=== PATIENT | female | born 1990 | race Caucasian/White ===

== ENCOUNTER 2016-10-13 23:59 | Emergency (ER) | payer OTHER ==
--- NOTE | 2016-10-14 02:07 | ED NURSING NOTES ---
Clinical Report - Nurses [facility] [address] [place] [address] 10/14/2016 0:00 Patient: JOURDAN NICHOLS TRIAGE Triage time 00:29. Acuity: LEVEL 3. Chief Complaint: ABDOMINAL PAIN. --00:40 Camron Pritchett R.N. 00:29 10/14/16. BP: 103/57. HR: 64. RR: 16. O2 saturation: 99%. Temp: 98 F. Pain level now: 11/27. --00:40 Camron Pritchett R.N. Weight: 99.7 kg stated. Height/Length: 61 inches Per Patient. BMI: 41.6. --00:29 Camron Pritchett R.N. Medications None. --00:34 Camron Pritchett R.N. Medication/allergy information source: the patient. --00:40 Camron Pritchett R.N. Allergies No Known Drug Allergy. --00:34 Camron Pritchett R.N. History Arrived by private vehicle. Historian: patient. Accompanied by spouse. ( Miscarriaged last August 22 and have been waiting for OB-PHOTONICS ENGINEER consult since then but unable to get an appointment. have been having lower abdominal pain for over 7 weeks and have followed up with her PCP last month. No vaginal bleeding, occasional nausea and diarrhea with no fever.). Onset. (7 weeks ago). She has had mild nausea. It has been similar to previous symptoms and abdominal pain. The pain is described as located in the lower abdomen and associated with nausea and diarrhea. She has had diarrhea (once per day). Last oral intake by patient was (4 hours ago). 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 PAST MEDICAL HX: Last normal menstrual period- Jun 14. SURGERY HX: Appendectomy. . SOCIAL HX: Light tobacco smoker (cigarette)- less than 1/2 a pack per day. No infectious disease exposure. --00:40 Camron Pritchett R.N. Interventions ID band on patient. To room. --00:40 Camron Pritchett R.N. PHYSICAL ASSESSMENT Ambulatory to room. GENERAL / NEURO / PSYCH: Alert. Oriented X 4. Appears in no acute distress. HEENT: Mucous membranes are pink. RESPIRATORY: Respirations not labored. Breath sounds within normal limits. CVS: Capillary refill less than 2 seconds. GI / : The patient has had nausea and diarrhea. Abdominal distention. Abdomen soft. Abdominal tenderness in the lower abdomen. Bowel sounds within normal limits. A scant amount of thin, clear and white vaginal discharge present. SKIN: Skin is warm and dry. --00:41 Camron Pritchett R.N. NURSING PROGRESS NOTES Head of bed elevated. Reassurance given. Patient identifiers checked. Call light placed in reach. Side rails up x 1. Bed placed in lowest position. Brakes of bed on. Patient ready for evaluation- ED physician notified. --00:42 Camron Pritchett R.N. Patient ID band checked for patient name and birthdate: patient confirmed. Instructions provided to collect clean catch urine and patient verbalized understanding. Clean catch urine collected with return of kasey-colored cloudy urine; sample sent to lab for urinalysis and HCG. Specimen labeled in the presence of the patient. --00:43 Camron Pritchett R.N. Care transferred and report received (Camron Alston RN). --01:11 Yamilet Birmingham R.N. 01:14 10/14/2016 Site #1 started via IV in the right antecubital space with an 20g angiocath, with aseptic technique and good blood return; one attempt. Blood drawn: rainbow set. Labeled in the presence of the patient and sent to the lab. Saline lock flushed with 10 mL saline (Started by Alireza BLOUNT). --01:14 Yamilet Birmingham R.N. ( US in with patient). --01:48 Yamilet Birmingham R.N. <<STRICKEN ENTRY-- 02:17 10/14/2016 Keflex (Cephalexin) PO Capsules 500 mg given. Allergies verified and confirmed 5 rights. --02:17 Yamilet Birmingham R.N. --END STRIKE>> Other. Patient refused, --02:17 Yamilet Birmingham R.N. 02:18 10/14/2016 Site #1 removed. Pressure dressing applied. --02:18 Yamilet Birmingham R.N. 02:14 10/14/16. BP: 108/63 (large adult cuff) taken on the left arm. HR: 78. RR: 18 (regular). O2 saturation: 100% on room air. Pain level now: 12/28. --02:18 Yamilet Birmingham R.N. 02:17 10/14/2016 Keflex (Cephalexin) PO Capsules 500 mg given. Allergies verified and confirmed 5 rights. --02:20 Yamilet Birmingham R.N. DISPOSITION / DISCHARGE 02:50 10/14/16. Departure time: :Oct 14 2016. Condition at departure: unchanged. No learning barriers present. Discharge instructions provided and reviewed with the patient. Reviewed medication(s) side effects, precautions, dosing and course information. Prescription(s) given to the patient. Patient verbalized understanding. Written instructions provided in Indonesian. The patient was discharged by the physician. She was discharged home and accompanied by air cargo ground operations supervisor. She left the Emergency Department ambulatory and via private vehicle. [employer] Architect driving. --02:50 Yamilet Birmingham R.N. 02:48 10/14/16. BP: 108/68 (large adult cuff) taken on the left arm. HR: 78. RR: 16. O2 saturation: 100% on room air. Temp: 97.8 F (oral). Pain level now: 11/27. --02:50 Yamilet Birmingham R.N. Departure time: :Oct 14 2016. --03:26 Yamilet Birmingham R.N. Locked/Released at 10/14/2016 3:27 by Yamilet Birmingham R.N.
--- NOTE | 2016-10-14 02:07 | ED ORDER SUMMARY ---
..... Patient: JOURDAN NICHOLS OrderSheet [facility] VisitID: [id number] [place] [address] 26y, F Registration Date/Time: 10/14/2016 ORDER SHEET Weight: 99.7 kg (stated) Allergies: No Known Drug Allergy GENERAL ORDERS: UA-Culture if indicated Urgent (00:35 10/14/2016 Tenisha Arias) (Ack 0:37 Bertha ER Magazine Designer) (0:43 CHernandez R.N.) Urine Urgent (00:35 10/14/2016 Tenisha Arias) (Ack 0:37 Bertha ER Magazine Designer) (0:43 CHernandez R.N.) US Pelvic Complete w Transvag Urgent (01:00 10/14/2016 Tenisha Arias) (Ack 1:01 Bertha ER Magazine Designer) (Cancelled: Duplicate Order2:01 Tenisha Arias) CBC w Diff Urgent (01:01 10/14/2016 Tenisha Arias) (Ack 1:01 Bertha ER Magazine Designer) (1:14 JSanders R.N.) BMP Urgent (01:01 10/14/2016 Tenisha Arias) (Ack 1:01 Bertha ER Magazine Designer) (1:14 JSanders R.N.) UA-Culture if indicated Urgent (01:01 10/14/2016 Tenisha Arias) (Ack 1:01 Bertha ER Magazine Designer) (Cancelled: Duplicate Order1:04 Mikeerty ER Magazine Designer) Urine Urgent (01:01 10/14/2016 Tenisha Arias) (Ack 1:01 Mikeerty ER Magazine Designer) (Cancelled: Duplicate Order1:04 CHagerty ER Magazine Designer) Serum Quantitative Urgent (01:51 10/14/2016 Tenisha Arias) (Ack 2:22 Bertha ER Magazine Designer) (2:44 JSanders R.N.) US OB 2nd Trimester (several months ago) Urgent (02:01 10/14/2016 Tenisha Arias) (2:08 GUnger) MEDICATION ORDERS: Keflex PO 500 mg (NOW) (02:04 10/14/2016 Tenisha Arias) (Ack 2:12 JSanders R.N.) (2:20 JSanders R.N.) IV FLUIDS: Morphine IV 4 mg (HIGH ALERT MEDICATION, NOW) (01:00 10/14/2016 Tenisha Arias) (Ack 1:11 JSanders R.N.) (Cancelled: Patient Refusal2:20 JSanders R.N.) IV Saline Lock (01:10/14/2016 Tenisha Arias) (Ack 1:11 JSanders R.N.) (1:14 JSanders R.N.) ORDER SHEET NOTES: [Electronically signed by Yamilet Birmingham R.N. (03:10/14/2016)] [Electronically signed by Torres Cruz Dr. (06:10/17/2016)] [Electronically locked/signed by Yamilet Birmingham R.N. (03:10/14/2016)]
--- NOTE | 2016-10-14 02:07 | ED NURSING NOTES ---
Clinical Report - Nurses [facility] [address] [place] [address] 10/14/2016 0:00 Patient: JOURDAN NICHOLS TRIAGE Triage time 00:29. Acuity: LEVEL 3. Chief Complaint: ABDOMINAL PAIN. --00:40 Camron Pritchett R.N. 00:29 10/14/16. BP: 103/57. HR: 64. RR: 16. O2 saturation: 99%. Temp: 98 F. Pain level now: 11/27. --00:40 Camron Pritchett R.N. Weight: 99.7 kg stated. Height/Length: 61 inches Per Patient. BMI: 41.6. --00:29 Camron Pritchett R.N. Medications None. --00:34 Camron Pritchett R.N. Medication/allergy information source: the patient. --00:40 Camron Pritchett R.N. Allergies No Known Drug Allergy. --00:34 Camron Pritchett R.N. History Arrived by private vehicle. Historian: patient. Accompanied by spouse. ( Miscarriaged last August 22 and have been waiting for OB-PEARL TECHNICIAN consult since then but unable to get an appointment. have been having lower abdominal pain for over 7 weeks and have followed up with her PCP last month. No vaginal bleeding, occasional nausea and diarrhea with no fever.). Onset. (7 weeks ago). She has had mild nausea. It has been similar to previous symptoms and abdominal pain. The pain is described as located in the lower abdomen and associated with nausea and diarrhea. She has had diarrhea (once per day). Last oral intake by patient was (4 hours ago). 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 PAST MEDICAL HX: Last normal menstrual period- Jun 14. SURGERY HX: Appendectomy. . SOCIAL HX: Light tobacco smoker (cigarette)- less than 1/2 a pack per day. No infectious disease exposure. --00:40 Camron Pritchett R.N. Interventions ID band on patient. To room. --00:40 Camron Pritchett R.N. PHYSICAL ASSESSMENT Ambulatory to room. GENERAL / NEURO / PSYCH: Alert. Oriented X 4. Appears in no acute distress. HEENT: Mucous membranes are pink. RESPIRATORY: Respirations not labored. Breath sounds within normal limits. CVS: Capillary refill less than 2 seconds. GI / : The patient has had nausea and diarrhea. Abdominal distention. Abdomen soft. Abdominal tenderness in the lower abdomen. Bowel sounds within normal limits. A scant amount of thin, clear and white vaginal discharge present. SKIN: Skin is warm and dry. --00:41 Camron Pritchett R.N. NURSING PROGRESS NOTES Head of bed elevated. Reassurance given. Patient identifiers checked. Call light placed in reach. Side rails up x 1. Bed placed in lowest position. Brakes of bed on. Patient ready for evaluation- ED physician notified. --00:42 Camron Pritchett R.N. Patient ID band checked for patient name and birthdate: patient confirmed. Instructions provided to collect clean catch urine and patient verbalized understanding. Clean catch urine collected with return of kasey-colored cloudy urine; sample sent to lab for urinalysis and HCG. Specimen labeled in the presence of the patient. --00:43 Camron Pritchett R.N. Care transferred and report received (Camron Alston RN). --01:11 Yamilet Birmingham R.N. 01:14 10/14/2016 Site #1 started via IV in the right antecubital space with an 20g angiocath, with aseptic technique and good blood return; one attempt. Blood drawn: rainbow set. Labeled in the presence of the patient and sent to the lab. Saline lock flushed with 10 mL saline (Started by Alireza BLOUNT). --01:14 Yamilet Birmingham R.N. ( US in with patient). --01:48 Yamilet Birmingham R.N. <<STRICKEN ENTRY-- 02:17 10/14/2016 Keflex (Cephalexin) PO Capsules 500 mg given. Allergies verified and confirmed 5 rights. --02:17 Yamilet Birmingham R.N. --END STRIKE>> Other. Patient refused, --02:17 Yamilet Birmingham R.N. 02:18 10/14/2016 Site #1 removed. Pressure dressing applied. --02:18 Yamilet Birmingham R.N. 02:14 10/14/16. BP: 108/63 (large adult cuff) taken on the left arm. HR: 78. RR: 18 (regular). O2 saturation: 100% on room air. Pain level now: 12/28. --02:18 Yamilet Birmingham R.N. 02:17 10/14/2016 Keflex (Cephalexin) PO Capsules 500 mg given. Allergies verified and confirmed 5 rights. --02:20 Yamilet Birmingham R.N. DISPOSITION / DISCHARGE 02:50 10/14/16. Departure time: :Oct 14 2016. Condition at departure: unchanged. No learning barriers present. Discharge instructions provided and reviewed with the patient. Reviewed medication(s) side effects, precautions, dosing and course information. Prescription(s) given to the patient. Patient verbalized understanding. Written instructions provided in Macedonian. The patient was discharged by the physician. She was discharged home and accompanied by airport utility worker. She left the Emergency Department ambulatory and via private vehicle. Occupational Therapy Program Director driving. --02:50 Yamilet Birmingham R.N. 02:48 10/14/16. BP: 108/68 (large adult cuff) taken on the left arm. HR: 78. RR: 16. O2 saturation: 100% on room air. Temp: 97.8 F (oral). Pain level now: 11/27. --02:50 Yamilet Birmingham R.N. Departure time: :Oct 14 2016. --03:26 Yamilet Birmingham R.N. Locked/Released at 10/14/2016 3:27 by Yamilet Birmingham R.N.
--- NOTE | 2016-10-14 02:07 | ED ORDER SUMMARY ---
..... Patient: JOURDAN NICHOLS OrderSheet [facility] VisitID: [id number] [place] [address] 26y, F Registration Date/Time: 10/14/2016 ORDER SHEET Weight: 99.7 kg (stated) Allergies: No Known Drug Allergy GENERAL ORDERS: UA-Culture if indicated Urgent (00:35 10/14/2016 Tenisha Arias) (Ack 0:37 Bertha ER Hr Assistant) (0:43 CHernandez R.N.) Urine Urgent (00:35 10/14/2016 Tenisha Arias) (Ack 0:37 Bertha ER Hr Assistant) (0:43 CHernandez R.N.) US Pelvic Complete w Transvag Urgent (01:00 10/14/2016 Tenisha Arias) (Ack 1:01 Bertha ER Hr Assistant) (Cancelled: Duplicate Order2:01 Tenisha Arias) CBC w Diff Urgent (01:01 10/14/2016 Tenisha Arias) (Ack 1:01 Bertha ER Hr Assistant) (1:14 JSanders R.N.) BMP Urgent (01:01 10/14/2016 Tenisha Arias) (Ack 1:01 Bertha ER Hr Assistant) (1:14 JSanders R.N.) UA-Culture if indicated Urgent (01:01 10/14/2016 Tenisha Arias) (Ack 1:01 Bertha ER Hr Assistant) (Cancelled: Duplicate Order1:04 Mikeerty ER Hr Assistant) Urine Urgent (01:01 10/14/2016 Tenisha Arias) (Ack 1:01 Mikeerty ER Hr Assistant) (Cancelled: Duplicate Order1:04 CHagerty ER Hr Assistant) Serum Quantitative Urgent (01:51 10/14/2016 Tenisha Arias) (Ack 2:22 Bertha ER Hr Assistant) (2:44 JSanders R.N.) US OB 2nd Trimester (several months ago) Urgent (02:01 10/14/2016 Tenisha Arias) (2:08 GUnger) MEDICATION ORDERS: Keflex PO 500 mg (NOW) (02:04 10/14/2016 Tenisha Arias) (Ack 2:12 JSanders R.N.) (2:20 JSanders R.N.) IV FLUIDS: Morphine IV 4 mg (HIGH ALERT MEDICATION, NOW) (01:00 10/14/2016 Tenisha Arias) (Ack 1:11 JSanders R.N.) (Cancelled: Patient Refusal2:20 JSanders R.N.) IV Saline Lock (01:10/14/2016 Tenisha Arias) (Ack 1:11 JSanders R.N.) (1:14 JSanders R.N.) ORDER SHEET NOTES: [Electronically signed by Yamilet Birmingham R.N. (03:10/14/2016)] [Electronically signed by Torres Cruz Dr. (06:10/17/2016)] [Electronically locked/signed by Yamilet Birmingham R.N. (03:10/14/2016)]
--- NOTE | 2016-10-14 02:07 | ED CLINICAL REPORT ---
Clinical Report - Physicians/Mid Levels [facility] [address] [place] [address] 10/14/2016 0:00 Patient: JOURDAN NICHOLS Time Seen: 0035. Arrived- By private vehicle. Historian- patient. HISTORY OF PRESENT ILLNESS Chief Complaint: ABDOMINAL PAIN. This started past 7 weeks and is still present and worsening. It was abrupt in onset and has been intermittent but is not gone now. It is described as sharp and it is described as located in the suprapubic area and radiating to the low back. At its maximum, severity described as severe. When seen in the E.D., severity described as severe. The patient has had nausea. No loss of appetite, vomiting or diarrhea. No recent travel. Similar symptoms previously: None. Recent medical care: The patient was seen recently by a health care provider (states she had a miscarriage. states she passes what was described as products of conception.). REVIEW OF SYSTEMS No black stools, hematemesis, bloody stools, fever or chest pain. No skin rash. She has missed periods. All systems otherwise negative, except as recorded above. PAST HISTORY See nurses notes. Medications: None. Allergies: No Known Drug Allergy. SOCIAL HISTORY Smoker- current status unknown. No alcohol use or drug use. No recent travel. Is a local resident. ADDITIONAL NOTES The nursing notes have been reviewed. PHYSICAL EXAM Vital Signs: 10/14/2016 00:29 BP: 103/57. HR: 64. RR: 16. O2 saturation: 99%. Temp: 98 F. Pain level now: 7/10. Blood pressure normal. Oxygen saturation normal. Appearance: Alert. Oriented X3. No acute distress. (non-toxic). Eyes: Pupils equal, round and reactive to light. Eyes normal inspection. ENT: Ears normal. Nose normal. Pharynx normal. CVS: Normal heart rate and rhythm. Heart sounds normal. Pulses normal. Respiratory: No respiratory distress. Breath sounds normal. Chest nontender. Abdomen: Soft and nontender. Bowel sounds normal. No organomegaly. No mass. Obese. Skin: Skin warm and dry. Normal skin color. No rash. Normal skin turgor. Extremities: Extremities exhibit normal ROM. No lower extremity edema. LABS, X-RAYS, AND EKG Abdominal Sonogram: (PROCEDURE: US 2ND TRIMESTER INDICATION: PAIN TECHNIQUE: Luna scale, color, and spectral Doppler images of the second trimester gravid uterus were obtained. COMPARISON: None. FINDINGS: Single intrauterine with transverse presentation, head on the maternal right, with posterior placenta. No previa. Amniotic fluid is unremarkable. Heart rate 140 bpm. Normal closed cervix measures 3.9 cm. BPD 3.6 cm, 17 weeks 1 day; head circumference 13.5 cm, 17-week; abdominal circumference 12.4 cm, 18 weeks; femur length 2.5 cm, 17 weeks 4 days. Composite age 70 weeks 3 days. VICTORINO 03/21/2017. Maternal kidneys are unremarkable. IMPRESSION: 1. Single live intrauterine , 17 weeks 3 days). The study was independently viewed by me and interpreted by the radiologist. The study was discussed with the radiologist (via pacs). Laboratory Tests: UA-Culture if indicated: (MABLE: 10/14/2016 00:45) ( MsgRcvd 10/14/2016 01:00) Final results Test Result Flag Units (Reference) URINE COLOR YELLOW URINE APPEARANCE CLEAR URINE GLUCOSE NEGATIVE (NEGATIVE) URINE BILIRUBIN NEGATIVE (NEGATIVE) URINE KETONE NEGATIVE (NEGATIVE) URINE SPECIFIC GRAVITY >= 1.030 (1.010-1.030) URINE PH 6.0 (5.0-8.0) URINE PROTEIN NEGATIVE (NEGATIVE) URINE UROBILINOGEN 0.2 EU/dL (0.2-1.0) URINE NITRITE NEGATIVE (NEGATIVE) URINE BLOOD NEGATIVE (NEGATIVE) URINE LEUK ESTERASE TRACE (NEGATIVE) URINE RBC 3-5 rbc/hpf (0-1) URINE WBC 1-3 wbc/hpf (0-1) URINE EPITHELIAL CELLS 5-10 EPI/hpf (0-5) URINE BACTERIA MODERATE (2+ TO 3+) (NONE SEEN) URINE COMMENT CULTURE INDICATED FEW TRICHOMONAS, 3+ MUCOUSURINE CULTURES ARE SET-UP BASED ON THE FOLLOWING CRITERIA:POSITIVE NITRITEPOSITIVE LEUKOCYTE ESTERASEGREATER THAN 10 WHITE BLOOD CELLSMODERATE (2+) OR GREATER BACTERIA Urine: (MABLE: 10/14/2016 00:45) ( MsgRcvd 10/14/2016 00:54) Final results Test Result Flag Units (Reference) URINE POSITIVE CBC w Diff: (MABLE: 10/14/2016 01:12) ( MsgRcvd 10/14/2016 01:20) Final results Test Result Flag Units (Reference) WHITE BLOOD COUNT 11.1 K/uL (4.5-11.5) RED BLOOD COUNT 4.25 M/uL (4.00-5.20) HEMOGLOBIN 11.6 L gm/dL (12.0-16.0) HEMATOCRIT 34.4 L % (36.0-46.0) MEAN CELL VOLUME 81 fL (80-100) MEAN CORPUSCULAR HGB 27 pg (26-34) MEAN CORPUSCULAR HGB CONC 34 g/dL (31-37) RED CELL DISTRIBUTION WIDTH 15.3 H % (11.6-14.8) PLATELET COUNT 313 K/uL (150-400) NEUTROPHIL % 55.7 % (50-75) LYMPH % 34.8 % (25-40) MONO % 6.9 % (3-14) EOSINOPHIL % 1.8 % (0-4) BASOPHIL % 0.8 % (0-2) BMP: (MABLE: 10/14/2016 01:12) ( MsgRcvd 10/14/2016 01:27) Final results Test Result Flag Units (Reference) GLUCOSE 85 mg/dL (70-110) BUN 7 mg/dL (7-18) CREATININE 0.6 mg/dL (0.6-1.3) Estimated GFR >60 mL/min Estimated GFR- >60 mL/min Note: Persistent reduction over 3 months in eGFR<60 mL/min/1.73 m2 defines CKD. Patients with eGFR values>=60 mL/min/1.73 m2 may also have CKD if evidence ofpersistent proteinuria. Additional information may be foundat www.kidney.org. SODIUM 137 mmol/L (136-145) POTASSIUM 3.2 L mmol/L (3.5-5.1) CHLORIDE 102 mmol/L (98-107) CARBON DIOXIDE 25 mmol/L (21-32) CALCIUM 9.0 mg/dL (8.5-10.1) . PROGRESS AND PROCEDURES Course of Care: the patient is a pleasant 26-year-old female presenting for evaluation of suprapubic abdominal pain. At this time differential diagnosis includes urinary tract infection, ovarian torsion, ectopic . laboratory studies them and ordered. Pain medication as been offered. Patient is agreeable to the treatment plan. Patient will be evaluated laboratory studies including urinalysis And ultrasound. the patient's workup was remarkable for the findings above. Patient is noted to have a positive test. Urinalysis is also positive. A tract infection. Patient is noted to be at approximately 17 weeks gestation. Unclear exactly what happened during the reported miscarriage. Patient may of had a threatened with a possible passage of blood clots however patient is noted to be here in the emergency department. Abdominal exam was somewhat difficult to perform given the patient's body habitus. Was unable to palpate the fundus. No other acute maladies noted. Patient has not been bleeding since the reported miscarriage. Because of the patient's findings here in the emergency department, patient will be encouraged to follow up with her SERVICE STATION CASHIER. Patient is not a danger of precipitous labor at this time. Adequate heart tones are noted on examination. Patient continues to be nontoxic and in no acute distress. Head discussion the patient in regards to her workup here in the emergency department including diagnosis, home care, follow-up, and return precautions. All questions have been answered. The patient expressed understanding of these instructions and was agreeable to them. Patient's repeat examination continues to be reassuring. Disposition: Discharged. Condition: good. CLINICAL IMPRESSION Acute suprapubic abdominal pain. Second trimester . Acute urinary tract infection with cystitis and hematuria. INSTRUCTIONS Warnings: GENERAL WARNINGS: Return or contact your physician immediately if your condition worsens or changes unexpectedly, if not improving as expected, or if other problems arise. SPECIFICALLY, return if you develop pain, fever, vomiting, the inability to keep fluids down, blood in vomitus, blood in diarrhea, fainting or lightheadedness. Your Current Medications: CONTINUE TAKING THE FOLLOWING MEDICATIONS: None*. Prescription Medications: Cephalexin 500 mg: take 1 capsule orally every 8 hours for 5 days. No refill. (disp 15 caps) vitamins: Take 1 orally every day. Dispense thirty (30). No refils. Substitution is permissible. Follow-up: Return to the emergency department as needed. Follow up with a specialist Your SERVICE STATION CASHIER in three days. Reason for referral: recheck today's concerns. Summary of care provided to patient via paper. Follow up with your doctor in three days. Reason for referral: recheck today's concerns. Summary of care provided to patient via paper. Screening today revealed the patient's blood pressure to be in the normal range. The patient should follow up with a primary care provider for blood pressure management. Understanding of the discharge instructions verbalized by patient. Follow-up with: Víctor Gonzalez MD, Obstetrics/Gynecology, , [facility], [address] [place] [address] Follow up. Reason for referral: contact if you don't have a SERVICE STATION CASHIER to follow up with. Summary of care provided to patient via paper. (Electronically signed by Torres Cruz Dr. 10/17/2016 6:01)
--- NOTE | 2016-10-14 02:07 | ED CLINICAL REPORT ---
Clinical Report - Physicians/Mid Levels [facility] [address] [place] [address] 10/14/2016 0:00 Patient: JOURDAN NICHOLS Time Seen: 0035. Arrived- By private vehicle. Historian- patient. HISTORY OF PRESENT ILLNESS Chief Complaint: ABDOMINAL PAIN. This started past 7 weeks and is still present and worsening. It was abrupt in onset and has been intermittent but is not gone now. It is described as sharp and it is described as located in the suprapubic area and radiating to the low back. At its maximum, severity described as severe. When seen in the E.D., severity described as severe. The patient has had nausea. No loss of appetite, vomiting or diarrhea. No recent travel. Similar symptoms previously: None. Recent medical care: The patient was seen recently by a health care provider (states she had a miscarriage. states she passes what was described as products of conception.). REVIEW OF SYSTEMS No black stools, hematemesis, bloody stools, fever or chest pain. No skin rash. She has missed periods. All systems otherwise negative, except as recorded above. PAST HISTORY See nurses notes. Medications: None. Allergies: No Known Drug Allergy. SOCIAL HISTORY Smoker- current status unknown. No alcohol use or drug use. No recent travel. Is a local resident. ADDITIONAL NOTES The nursing notes have been reviewed. PHYSICAL EXAM Vital Signs: 10/14/2016 00:29 BP: 103/57. HR: 64. RR: 16. O2 saturation: 99%. Temp: 98 F. Pain level now: 7/10. Blood pressure normal. Oxygen saturation normal. Appearance: Alert. Oriented X3. No acute distress. (non-toxic). Eyes: Pupils equal, round and reactive to light. Eyes normal inspection. ENT: Ears normal. Nose normal. Pharynx normal. CVS: Normal heart rate and rhythm. Heart sounds normal. Pulses normal. Respiratory: No respiratory distress. Breath sounds normal. Chest nontender. Abdomen: Soft and nontender. Bowel sounds normal. No organomegaly. No mass. Obese. Skin: Skin warm and dry. Normal skin color. No rash. Normal skin turgor. Extremities: Extremities exhibit normal ROM. No lower extremity edema. LABS, X-RAYS, AND EKG Abdominal Sonogram: (PROCEDURE: US 2ND TRIMESTER INDICATION: PAIN TECHNIQUE: Luna scale, color, and spectral Doppler images of the second trimester gravid uterus were obtained. COMPARISON: None. FINDINGS: Single intrauterine with transverse presentation, head on the maternal right, with posterior placenta. No previa. Amniotic fluid is unremarkable. Heart rate 140 bpm. Normal closed cervix measures 3.9 cm. BPD 3.6 cm, 17 weeks 1 day; head circumference 13.5 cm, 17-week; abdominal circumference 12.4 cm, 18 weeks; femur length 2.5 cm, 17 weeks 4 days. Composite age 70 weeks 3 days. VICTORINO 03/21/2017. Maternal kidneys are unremarkable. IMPRESSION: 1. Single live intrauterine , 17 weeks 3 days). The study was independently viewed by me and interpreted by the radiologist. The study was discussed with the radiologist (via pacs). Laboratory Tests: UA-Culture if indicated: (MABLE: 10/14/2016 00:45) ( MsgRcvd 10/14/2016 01:00) Final results Test Result Flag Units (Reference) URINE COLOR YELLOW URINE APPEARANCE CLEAR URINE GLUCOSE NEGATIVE (NEGATIVE) URINE BILIRUBIN NEGATIVE (NEGATIVE) URINE KETONE NEGATIVE (NEGATIVE) URINE SPECIFIC GRAVITY >= 1.030 (1.010-1.030) URINE PH 6.0 (5.0-8.0) URINE PROTEIN NEGATIVE (NEGATIVE) URINE UROBILINOGEN 0.2 EU/dL (0.2-1.0) URINE NITRITE NEGATIVE (NEGATIVE) URINE BLOOD NEGATIVE (NEGATIVE) URINE LEUK ESTERASE TRACE (NEGATIVE) URINE RBC 3-5 rbc/hpf (0-1) URINE WBC 1-3 wbc/hpf (0-1) URINE EPITHELIAL CELLS 5-10 EPI/hpf (0-5) URINE BACTERIA MODERATE (2+ TO 3+) (NONE SEEN) URINE COMMENT CULTURE INDICATED FEW TRICHOMONAS, 3+ MUCOUSURINE CULTURES ARE SET-UP BASED ON THE FOLLOWING CRITERIA:POSITIVE NITRITEPOSITIVE LEUKOCYTE ESTERASEGREATER THAN 10 WHITE BLOOD CELLSMODERATE (2+) OR GREATER BACTERIA Urine: (MABLE: 10/14/2016 00:45) ( MsgRcvd 10/14/2016 00:54) Final results Test Result Flag Units (Reference) URINE POSITIVE CBC w Diff: (MABLE: 10/14/2016 01:12) ( MsgRcvd 10/14/2016 01:20) Final results Test Result Flag Units (Reference) WHITE BLOOD COUNT 11.1 K/uL (4.5-11.5) RED BLOOD COUNT 4.25 M/uL (4.00-5.20) HEMOGLOBIN 11.6 L gm/dL (12.0-16.0) HEMATOCRIT 34.4 L % (36.0-46.0) MEAN CELL VOLUME 81 fL (80-100) MEAN CORPUSCULAR HGB 27 pg (26-34) MEAN CORPUSCULAR HGB CONC 34 g/dL (31-37) RED CELL DISTRIBUTION WIDTH 15.3 H % (11.6-14.8) PLATELET COUNT 313 K/uL (150-400) NEUTROPHIL % 55.7 % (50-75) LYMPH % 34.8 % (25-40) MONO % 6.9 % (3-14) EOSINOPHIL % 1.8 % (0-4) BASOPHIL % 0.8 % (0-2) BMP: (MABLE: 10/14/2016 01:12) ( MsgRcvd 10/14/2016 01:27) Final results Test Result Flag Units (Reference) GLUCOSE 85 mg/dL (70-110) BUN 7 mg/dL (7-18) CREATININE 0.6 mg/dL (0.6-1.3) Estimated GFR >60 mL/min Estimated GFR- >60 mL/min Note: Persistent reduction over 3 months in eGFR<60 mL/min/1.73 m2 defines CKD. Patients with eGFR values>=60 mL/min/1.73 m2 may also have CKD if evidence ofpersistent proteinuria. Additional information may be foundat www.kidney.org. SODIUM 137 mmol/L (136-145) POTASSIUM 3.2 L mmol/L (3.5-5.1) CHLORIDE 102 mmol/L (98-107) CARBON DIOXIDE 25 mmol/L (21-32) CALCIUM 9.0 mg/dL (8.5-10.1) . PROGRESS AND PROCEDURES Course of Care: the patient is a pleasant 26-year-old female presenting for evaluation of suprapubic abdominal pain. At this time differential diagnosis includes urinary tract infection, ovarian torsion, ectopic . laboratory studies them and ordered. Pain medication as been offered. Patient is agreeable to the treatment plan. Patient will be evaluated laboratory studies including urinalysis And ultrasound. the patient's workup was remarkable for the findings above. Patient is noted to have a positive test. Urinalysis is also positive. A tract infection. Patient is noted to be at approximately 17 weeks gestation. Unclear exactly what happened during the reported miscarriage. Patient may of had a threatened with a possible passage of blood clots however patient is noted to be here in the emergency department. Abdominal exam was somewhat difficult to perform given the patient's body habitus. Was unable to palpate the fundus. No other acute maladies noted. Patient has not been bleeding since the reported miscarriage. Because of the patient's findings here in the emergency department, patient will be encouraged to follow up with her [employer]. Patient is not a danger of precipitous labor at this time. Adequate heart tones are noted on examination. Patient continues to be nontoxic and in no acute distress. Head discussion the patient in regards to her workup here in the emergency department including diagnosis, home care, follow-up, and return precautions. All questions have been answered. The patient expressed understanding of these instructions and was agreeable to them. Patient's repeat examination continues to be reassuring. Disposition: Discharged. Condition: good. CLINICAL IMPRESSION Acute suprapubic abdominal pain. Second trimester . Acute urinary tract infection with cystitis and hematuria. INSTRUCTIONS Warnings: GENERAL WARNINGS: Return or contact your physician immediately if your condition worsens or changes unexpectedly, if not improving as expected, or if other problems arise. SPECIFICALLY, return if you develop pain, fever, vomiting, the inability to keep fluids down, blood in vomitus, blood in diarrhea, fainting or lightheadedness. Your Current Medications: CONTINUE TAKING THE FOLLOWING MEDICATIONS: None*. Prescription Medications: Cephalexin 500 mg: take 1 capsule orally every 8 hours for 5 days. No refill. (disp 15 caps) vitamins: Take 1 orally every day. Dispense thirty (30). No refils. Substitution is permissible. Follow-up: Return to the emergency department as needed. Follow up with a specialist Your [employer] in three days. Reason for referral: recheck today's concerns. Summary of care provided to patient via paper. Follow up with your doctor in three days. Reason for referral: recheck today's concerns. Summary of care provided to patient via paper. Screening today revealed the patient's blood pressure to be in the normal range. The patient should follow up with a primary care provider for blood pressure management. Understanding of the discharge instructions verbalized by patient. Follow-up with: Víctor Gonzalez MD, Obstetrics/Gynecology, , [facility], [address] [place] [address] Follow up. Reason for referral: contact if you don't have a [employer] to follow up with. Summary of care provided to patient via paper. (Electronically signed by Torres Cruz Dr. 10/17/2016 6:01)
--- NOTE | 2016-10-14 14:24 | DIAGNOSTIC IMAGING REPORT ---
PROCEDURE: US 2ND TRIMESTER INDICATION: PAIN TECHNIQUE: Luna scale, color, and spectral Doppler images of the second trimester gravid uterus were obtained. COMPARISON: None. FINDINGS: Single intrauterine with transverse presentation, head on the maternal right, with posterior placenta. No previa. Amniotic fluid is unremarkable. Heart rate 140 bpm. Normal closed cervix measures 3.9 cm. BPD 3.6 cm, 17 weeks 1 day; head circumference 13.5 cm, 17-week; abdominal circumference 12.4 cm, 18 weeks; femur length 2.5 cm, 17 weeks 4 days. Composite age 70 weeks 3 days. VICTORINO 03/21/2017. Maternal kidneys are unremarkable. IMPRESSION: 1. Single live intrauterine , 17 weeks 3 days 2. VICTORINO 03/21/2017.
--- NOTE | 2016-10-17 06:02 | ED MED RECONCILIATION SUMMARY ---
Patient: JOURDAN NICHOLS Medication Reconciliation Report [facility] VisitID: [id number] [place] [address] 26y, F Registration Date/Time: 10/14/2016 Weight: 99.7 kg Height/Length: 61 in. BMI: 41.6 ALLERGIES: No Known Drug Allergy The patient's Home Medications are listed below: NONE. The source(s) of the original Home Medication information: patient The following Medications were given to the patient in the Emergency Department: Keflex [PO] PO 500 mg, administered: 10/14/2016 2:17:00 AM The following Medications were prescribed to the patient: Cephalexin 500 mg: take 1 capsule orally every 8 hours for 5 days. No refill.(disp 15 caps) -- Torres Cruz Dr. vitamins: Take 1 orally every day. Dispense thirty (30). No refils. Substitution is permissible. -- Torres Cruz Dr.
--- NOTE | 2016-10-17 06:02 | ED DISCHARGE INSTRUCTIONS ---
Patient: JOURDAN NICHOLS General Instructions [facility] VisitID: [id number] [place] [id number] 26y, F Registration Date/Time: 10/14/2016 Acute suprapubic abdominal pain. Second trimester . Acute urinary tract infection with cystitis and hematuria. INSTRUCTIONS Warnings: GENERAL WARNINGS: Return or contact your physician immediately if your condition worsens or changes unexpectedly, if not improving as expected, or if other problems arise. SPECIFICALLY, return if you develop pain, fever, vomiting, the inability to keep fluids down, blood in vomitus, blood in diarrhea, fainting or lightheadedness. Your Current Medications: CONTINUE TAKING THE FOLLOWING MEDICATIONS: None*. Prescription Medications: Cephalexin 500 mg: take 1 capsule orally every 8 hours for 5 days. No refill. (disp 15 caps) vitamins: Take 1 orally every day. Dispense thirty (30). No refils. Substitution is permissible. Follow-up: Return to the emergency department as needed. Follow up with a specialist Your [employer] SERV[employer] in three days. Reason for referral: recheck today's concerns. Summary of care provided to patient via paper. Follow up with your doctor in three days. Reason for referral: recheck today's concerns. Summary of care provided to patient via paper. Screening today revealed the patient's blood pressure to be in the normal range. The patient should follow up with a primary care provider for blood pressure management. Understanding of the discharge instructions verbalized by patient. Follow-up with: Víctor Gonzalez MD, Obstetrics/Gynecology, , [facility], [address] [place] [address] Follow up. Reason for referral: contact if you don't have a LINE SERV[employer] to follow up with. Summary of care provided to patient via paper. ADDITIONAL INFORMATION Abdominal Pain, Unknown Cause (Female) The exact cause of your abdominal (stomach) pain is not certain. This does not mean that this is something to worry about, or the right tests were not done. Everyone likes to know the exact cause of the problem, but sometimes with abdominal pain, there is no clear-cut cause, and this could be a good thing. The good news is that your symptoms can be treated, and you will feel better. Your condition does not seem serious now; however, sometimes the signs of a serious problem may take more time to appear. For this reason,it is important for you to watch for any new symptoms, problems,or worsening of your condition. Over the next few days, the abdominal pain may come and go, or be continuous. Other common symptoms can include nausea and vomiting. Sometimes it can be difficult to tell if you feel nauseous, you may just feel bad and not associate that feeling with nausea. Constipation, diarrhea, and a fever may go along with the pain. The pain may continue even if treated correctly over the following days. Depending on how things go, sometimes the cause can become clear and may require further or different treatment. Additional evaluations, medications, or tests may be needed. Home care Your health care provider may prescribe medications for pain, symptoms, or an infection. Follow the health care provider's instructions for taking these medications. General care Rest until your next exam. No strenuous activities. Try to find positions that ease discomfort. A small pillow placed on the abdomen may help relieve pain. Something warm on your abdomen (such as a heating pad) may help, but be careful not to burn yourself. Diet Do not force yourself to eat, especially if having cramps, vomiting, or diarrhea. Water is important so you do not get dehydrated. Soup may also be good. Sports drinks may also help, especially if they are not too acidic. Make sure you don't drink sugary drinks as this can make things worse. Take liquids in small amounts. Do not guzzle them. Caffeine sometimes makes the pain and cramping worse. Avoid dairy products if you have vomiting or diarrhea. Don't eat large amounts at a time. Wait a few minutes between bites. Eat a diet low in fiber (called a low-residue diet). Foods allowed include refined breads, white rice, fruit and vegetable juices without pulp, tender meats. These foods will pass more easily through the intestine. Avoid whole-grain foods, whole fruits and vegetables, meats, seeds and nuts, fried or fatty foods, dairy, alcohol and spicy foods until your symptoms go away. Follow-up care Follow up with your health care provider as instructed, or if your pain does not begin to improve in the next 24 hours. When to seek medical care Seek prompt medical care if any of the following occur: Pain gets worse or moves to the right lower abdomen New or worsening vomiting or diarrhea Swelling of the abdomen Unable to pass stool for more than three days Fever of 100.4F (38C) or higher, or as directed by your healthcare provider. Blood in vomit or bowel movements (dark red or black color) Jaundice (yellow color of eyes and skin) Weakness, dizziness Chest, arm, back, neck or jaw pain Unexpected vaginal bleeding or missed period Call 911 Call emergency services if any of the following occur: Trouble breathing Confusion Fainting or loss of consciousness Rapid heart rate Seizure Bladder Infection,Female (Adult) A bladder infection ("cystitis" or "UTI") usually causes a constant urge to urinate and a burning when passing urine. Urine may be cloudy, smelly or dark. There may be pain in the lower abdomen. A bladder infection occurs when bacteria from the vaginal area enter the bladder opening (urethra). This can occur from sexual intercourse, wearing tight clothing, dehydration and other factors. Home Care: Drink lots of fluids (at least 6-8 glasses a day, unless you must restrict fluids for other medical reasons). This will force the medicine into your urinary system and flush the bacteria out of your body. Avoid sexual intercourse until your symptoms are gone. Avoid caffeine, alcohol and spicy foods. These can irritate the bladder. A bladder infection is treated with antibiotics. You may also be given Pyridium (generic = phenazopyridine) to reduce the burning sensation. This medicine will cause your urine to become a bright orange color. The orange urine may stain clothing. You may wear a pad or panty-liner to protect clothing. Preventing Future Infections: Always wipe from front to back after a bowel movement. Keep the genital area clean and dry. Drink plenty of fluids each day to avoid dehydration. Both sexual partners should wash before intercourse. Urinate right after intercourse to flush out the bladder. Wear cotton underwear and cotton-lined panty hose; avoid tight-fitting pants. If you are on control pills and are having frequent bladder infections, discuss with your doctor. Follow Up: Return to this facility or see your doctor if ALL symptoms are not gone after three days of treatment. Get Prompt Medical Attention if any of the following occur: Fever of 100.4F (38C) or higher, or as directed by your healthcare provider No improvement by the third day of treatment Increasing back or abdominal pain Repeated vomiting; unable to keep medicine down Weakness, dizziness or fainting Vaginal discharge Pain, redness or swelling in the labia (outer vaginal area) Your exam today shows that you are . During , it is normal to develop tender swollen breasts, frequent urination and mild vaginal discharge. During the first three months, nausea is common. Guidelines For A Healthy : To ensure that your baby is born healthy there are certain things that you can do: When you feel tired, you should REST. This is especially true in the later months of . Your body needs more FLUIDS than you may be used to: You should drink 8-10 glasses of juice, milk or water. Eat well-balanced MEALS at regular intervals to supply your body with enough protein. You can expect a total weight gain of about 30 pounds during the . Do not try to diet or lose weight while you are . Because of the extra nutritional needs during , take one VITAMIN daily. Do not take any other MEDICINE during your (prescribed or [id number]) unless your doctor specifically recommends this. Many drugs can have harmful effects on the growing baby. If NAUSEA or VOMITING become a problem, avoid greasy and fried foods. Eat several smaller meals throughout the day rather than three large meals. If you SMOKE, you must stop. The nicotine you breathe in goes right to the baby. Stay away from ALCOHOL, even in moderate amounts. Daily drinking will harm your baby and can cause permanent brain damage. RECREATIONAL DRUGS are harmful, especially cocaine, crack, and heroin. Marijuana should also be avoided. If you were using recreational drugs or prescribed medicine when you found out that you were , talk to your doctor about possible effects on the fetus. Follow Up: Call to arrange for care. This can be provided by your family doctor, an hide shaker ( specialist) or a primary care clinic. Get Prompt Medical Attention if any of the following occur: Vaginal bleeding Moderate or severe abdominal or back pain Excessive vomiting, unable to keep any fluids down for six hours Burning with urination Headache, dizziness or rapid weight gain Cephalexin Monohydrate Oral tablet What is this medicine? CEPHALEXIN (sef a LOKESH in) is a cephalosporin antibiotic. It is used to treat certain kinds of bacterial infections It will not work for colds, flu, or other viral infections. How should I use this medicine? Take this medicine by mouth with a full glass of water. Follow the directions on the prescription label. This medicine can be taken with or without food. Take your medicine at regular intervals. Do not take your medicine more often than directed. Take all of your medicine as directed even if you think you are better. Do not skip doses or stop your medicine early. Talk to your greeter regarding the use of this medicine in children. While this drug may be prescribed for selected conditions, precautions do apply. What side effects may I notice from receiving this medicine? Side effects that you should report to your doctor or health lpn care manager as soon as possible: allergic reactions like skin rash, itching or hives, swelling of the face, lips, or tongue breathing problems pain or trouble passing urine redness, blistering, peeling or loosening of the skin, including inside the mouth severe or watery diarrhea unusually weak or tired yellowing of the eyes, skin Side effects that usually do not require medical attention (report to your doctor or health lpn care manager if they continue or are bothersome): gas or heartburn genital or anal irritation headache joint or muscle pain nausea, vomiting What may interact with this medicine? probenecid some other antibiotics What if I miss a dose? If you miss a dose, take it as soon as you can. If it is almost time for your next dose, take only that dose. Do not take double or extra doses. There should be at least 4 to 6 hours between doses. Where should I keep my medicine? Keep out of the reach of children. Store at room temperature between 59 and 86 degrees F (15 and 30 degrees C). Throw away any unused medicine after the expiration date. What should I tell my health care provider before I take this medicine? They need to know if you have any of these conditions: kidney disease stomach or intestine problems, especially colitis an unusual or allergic reaction to cephalexin, other cephalosporins, penicillins, other antibiotics, medicines, foods, dyes or preservatives or trying to get breast-feeding What should I watch for while using this medicine? Tell your doctor or health lpn care manager if your symptoms do not begin to improve in a few days. Do not treat diarrhea with over the counter products. Contact your doctor if you have diarrhea that lasts more than 2 days or if it is severe and watery. If you have diabetes, you may get a false-positive result for sugar in your urine. Check with your doctor or health lpn care manager. You have been given the following additional information: Abdominal Pain, Unknown Cause, (Female) Bladder Infection, Female (Adult) , New Dx Cephalexin Monohydrate Oral tablet (Electronically signed by Torres Cruz Dr. 10/17/2016 6:01)
--- NOTE | 2016-10-17 06:02 | ED MED RECONCILIATION SUMMARY ---
Patient: JOURDAN NICHOLS Medication Reconciliation Report [facility] VisitID: [id number] [place] [address] 26y, F Registration Date/Time: 10/14/2016 Weight: 99.7 kg Height/Length: 61 in. BMI: 41.6 ALLERGIES: No Known Drug Allergy The patient's Home Medications are listed below: NONE. The source(s) of the original Home Medication information: patient The following Medications were given to the patient in the Emergency Department: Keflex [PO] PO 500 mg, administered: 10/14/2016 2:17:00 AM The following Medications were prescribed to the patient: Cephalexin 500 mg: take 1 capsule orally every 8 hours for 5 days. No refill.(disp 15 caps) -- Torres Cruz Dr. vitamins: Take 1 orally every day. Dispense thirty (30). No refils. Substitution is permissible. -- Torres Cruz Dr.
--- NOTE | 2016-10-17 06:02 | ED MAR SUMMARY ---
..... Medication Administration Record [facility] [address] [place] [address] Patient: JOURDAN NICHOLS Visit ID: [id number] 26y, F Weight: 99.7 kg Height/Length: 61 in BMI: 41.6 ALLERGIES: No Known Drug Allergy Given 02:17 10/14/2016 Yamilet Birmingham R.N. Medication Administered: KEFLEX [PO] (CEPHALEXIN), Dose: 500 mg Capsules PO. Medication Ordered: Keflex PO 500 mg (NOW).
--- NOTE | 2016-10-17 06:02 | ED MAR SUMMARY ---
..... Medication Administration Record [facility] [address] [place] [address] Patient: JOURDAN NICHOLS Visit ID: [id number] 26y, F Weight: 99.7 kg Height/Length: 61 in BMI: 41.6 ALLERGIES: No Known Drug Allergy Given 02:17 10/14/2016 Yamilet Birmingham R.N. Medication Administered: KEFLEX [PO] (CEPHALEXIN), Dose: 500 mg Capsules PO. Medication Ordered: Keflex PO 500 mg (NOW).
--- NOTE | 2016-10-17 06:02 | ED DISCHARGE INSTRUCTIONS ---
Patient: JOURDAN NICHOLS General Instructions [facility] VisitID: [id number] Rafael CavazosElizabeth V[place] [id number] 26y, F Registration Date/Time: 10/14/2016 Acute suprapubic abdominal pain. Second trimester . Acute urinary tract infection with cystitis and hematuria. INSTRUCTIONS Warnings: GENERAL WARNINGS: Return or contact your physician immediately if your condition worsens or changes unexpectedly, if not improving as expected, or if other problems arise. SPECIFICALLY, return if you develop pain, fever, vomiting, the inability to keep fluids down, blood in vomitus, blood in diarrhea, fainting or lightheadedness. Your Current Medications: CONTINUE TAKING THE FOLLOWING MEDICATIONS: None*. Prescription Medications: Cephalexin 500 mg: take 1 capsule orally every 8 hours for 5 days. No refill. (disp 15 caps) vitamins: Take 1 orally every day. Dispense thirty (30). No refils. Substitution is permissible. Follow-up: Return to the emergency department as needed. Follow up with a specialist Your LIFE EDUCATOR in three days. Reason for referral: recheck today's concerns. Summary of care provided to patient via paper. Follow up with your doctor in three days. Reason for referral: recheck today's concerns. Summary of care provided to patient via paper. Screening today revealed the patient's blood pressure to be in the normal range. The patient should follow up with a primary care provider for blood pressure management. Understanding of the discharge instructions verbalized by patient. Follow-up with: Víctor Gonzalez MD, Obstetrics/Gynecology, , [facility], [address] [place] [address] Follow up. Reason for referral: contact if you don't have a LIFE EDUCATOR to follow up with. Summary of care provided to patient via paper. ADDITIONAL INFORMATION Abdominal Pain, Unknown Cause (Female) The exact cause of your abdominal (stomach) pain is not certain. This does not mean that this is something to worry about, or the right tests were not done. Everyone likes to know the exact cause of the problem, but sometimes with abdominal pain, there is no clear-cut cause, and this could be a good thing. The good news is that your symptoms can be treated, and you will feel better. Your condition does not seem serious now; however, sometimes the signs of a serious problem may take more time to appear. For this reason,it is important for you to watch for any new symptoms, problems,or worsening of your condition. Over the next few days, the abdominal pain may come and go, or be continuous. Other common symptoms can include nausea and vomiting. Sometimes it can be difficult to tell if you feel nauseous, you may just feel bad and not associate that feeling with nausea. Constipation, diarrhea, and a fever may go along with the pain. The pain may continue even if treated correctly over the following days. Depending on how things go, sometimes the cause can become clear and may require further or different treatment. Additional evaluations, medications, or tests may be needed. Home care Your health care provider may prescribe medications for pain, symptoms, or an infection. Follow the health care provider's instructions for taking these medications. General care Rest until your next exam. No strenuous activities. Try to find positions that ease discomfort. A small pillow placed on the abdomen may help relieve pain. Something warm on your abdomen (such as a heating pad) may help, but be careful not to burn yourself. Diet Do not force yourself to eat, especially if having cramps, vomiting, or diarrhea. Water is important so you do not get dehydrated. Soup may also be good. Sports drinks may also help, especially if they are not too acidic. Make sure you don't drink sugary drinks as this can make things worse. Take liquids in small amounts. Do not guzzle them. Caffeine sometimes makes the pain and cramping worse. Avoid dairy products if you have vomiting or diarrhea. Don't eat large amounts at a time. Wait a few minutes between bites. Eat a diet low in fiber (called a low-residue diet). Foods allowed include refined breads, white rice, fruit and vegetable juices without pulp, tender meats. These foods will pass more easily through the intestine. Avoid whole-grain foods, whole fruits and vegetables, meats, seeds and nuts, fried or fatty foods, dairy, alcohol and spicy foods until your symptoms go away. Follow-up care Follow up with your health care provider as instructed, or if your pain does not begin to improve in the next 24 hours. When to seek medical care Seek prompt medical care if any of the following occur: Pain gets worse or moves to the right lower abdomen New or worsening vomiting or diarrhea Swelling of the abdomen Unable to pass stool for more than three days Fever of 100.4F (38C) or higher, or as directed by your healthcare provider. Blood in vomit or bowel movements (dark red or black color) Jaundice (yellow color of eyes and skin) Weakness, dizziness Chest, arm, back, neck or jaw pain Unexpected vaginal bleeding or missed period Call 911 Call emergency services if any of the following occur: Trouble breathing Confusion Fainting or loss of consciousness Rapid heart rate Seizure Bladder Infection,Female (Adult) A bladder infection ("cystitis" or "UTI") usually causes a constant urge to urinate and a burning when passing urine. Urine may be cloudy, smelly or dark. There may be pain in the lower abdomen. A bladder infection occurs when bacteria from the vaginal area enter the bladder opening (urethra). This can occur from sexual intercourse, wearing tight clothing, dehydration and other factors. Home Care: Drink lots of fluids (at least 6-8 glasses a day, unless you must restrict fluids for other medical reasons). This will force the medicine into your urinary system and flush the bacteria out of your body. Avoid sexual intercourse until your symptoms are gone. Avoid caffeine, alcohol and spicy foods. These can irritate the bladder. A bladder infection is treated with antibiotics. You may also be given Pyridium (generic = phenazopyridine) to reduce the burning sensation. This medicine will cause your urine to become a bright orange color. The orange urine may stain clothing. You may wear a pad or panty-liner to protect clothing. Preventing Future Infections: Always wipe from front to back after a bowel movement. Keep the genital area clean and dry. Drink plenty of fluids each day to avoid dehydration. Both sexual partners should wash before intercourse. Urinate right after intercourse to flush out the bladder. Wear cotton underwear and cotton-lined panty hose; avoid tight-fitting pants. If you are on control pills and are having frequent bladder infections, discuss with your doctor. Follow Up: Return to this facility or see your doctor if ALL symptoms are not gone after three days of treatment. Get Prompt Medical Attention if any of the following occur: Fever of 100.4F (38C) or higher, or as directed by your healthcare provider No improvement by the third day of treatment Increasing back or abdominal pain Repeated vomiting; unable to keep medicine down Weakness, dizziness or fainting Vaginal discharge Pain, redness or swelling in the labia (outer vaginal area) Your exam today shows that you are . During , it is normal to develop tender swollen breasts, frequent urination and mild vaginal discharge. During the first three months, nausea is common. Guidelines For A Healthy : To ensure that your baby is born healthy there are certain things that you can do: When you feel tired, you should REST. This is especially true in the later months of . Your body needs more FLUIDS than you may be used to: You should drink 8-10 glasses of juice, milk or water. Eat well-balanced MEALS at regular intervals to supply your body with enough protein. You can expect a total weight gain of about 30 pounds during the . Do not try to diet or lose weight while you are . Because of the extra nutritional needs during , take one VITAMIN daily. Do not take any other MEDICINE during your (prescribed or [id number]) unless your doctor specifically recommends this. Many drugs can have harmful effects on the growing baby. If NAUSEA or VOMITING become a problem, avoid greasy and fried foods. Eat several smaller meals throughout the day rather than three large meals. If you SMOKE, you must stop. The nicotine you breathe in goes right to the baby. Stay away from ALCOHOL, even in moderate amounts. Daily drinking will harm your baby and can cause permanent brain damage. RECREATIONAL DRUGS are harmful, especially cocaine, crack, and heroin. Marijuana should also be avoided. If you were using recreational drugs or prescribed medicine when you found out that you were , talk to your doctor about possible effects on the fetus. Follow Up: Call to arrange for care. This can be provided by your family doctor, an smoking pipe maker ( specialist) or a primary care clinic. Get Prompt Medical Attention if any of the following occur: Vaginal bleeding Moderate or severe abdominal or back pain Excessive vomiting, unable to keep any fluids down for six hours Burning with urination Headache, dizziness or rapid weight gain Cephalexin Monohydrate Oral tablet What is this medicine? CEPHALEXIN (sef a LOKESH in) is a cephalosporin antibiotic. It is used to treat certain kinds of bacterial infections It will not work for colds, flu, or other viral infections. How should I use this medicine? Take this medicine by mouth with a full glass of water. Follow the directions on the prescription label. This medicine can be taken with or without food. Take your medicine at regular intervals. Do not take your medicine more often than directed. Take all of your medicine as directed even if you think you are better. Do not skip doses or stop your medicine early. Talk to your body mechanic apprentice regarding the use of this medicine in children. While this drug may be prescribed for selected conditions, precautions do apply. What side effects may I notice from receiving this medicine? Side effects that you should report to your doctor or health career development consultant as soon as possible: allergic reactions like skin rash, itching or hives, swelling of the face, lips, or tongue breathing problems pain or trouble passing urine redness, blistering, peeling or loosening of the skin, including inside the mouth severe or watery diarrhea unusually weak or tired yellowing of the eyes, skin Side effects that usually do not require medical attention (report to your doctor or health career development consultant if they continue or are bothersome): gas or heartburn genital or anal irritation headache joint or muscle pain nausea, vomiting What may interact with this medicine? probenecid some other antibiotics What if I miss a dose? If you miss a dose, take it as soon as you can. If it is almost time for your next dose, take only that dose. Do not take double or extra doses. There should be at least 4 to 6 hours between doses. Where should I keep my medicine? Keep out of the reach of children. Store at room temperature between 59 and 86 degrees F (15 and 30 degrees C). Throw away any unused medicine after the expiration date. What should I tell my health care provider before I take this medicine? They need to know if you have any of these conditions: kidney disease stomach or intestine problems, especially colitis an unusual or allergic reaction to cephalexin, other cephalosporins, penicillins, other antibiotics, medicines, foods, dyes or preservatives or trying to get breast-feeding What should I watch for while using this medicine? Tell your doctor or health career development consultant if your symptoms do not begin to improve in a few days. Do not treat diarrhea with over the counter products. Contact your doctor if you have diarrhea that lasts more than 2 days or if it is severe and watery. If you have diabetes, you may get a false-positive result for sugar in your urine. Check with your doctor or health career development consultant. You have been given the following additional information: Abdominal Pain, Unknown Cause, (Female) Bladder Infection, Female (Adult) , New Dx Cephalexin Monohydrate Oral tablet (Electronically signed by Torres Cruz Dr. 10/17/2016 6:01)
== END 2016-10-14 02:50 | disposition home or self-care (01) ==
LOC: ED SRH 23:59
DX: O23.12 Infections of bladder in pregnancy, second trimester (principal); O99.89 Other specified diseases and conditions complicating pregnancy, childbirth and the puerperium; R10.2 Pelvic and perineal pain; Z3A.17 17 weeks gestation of pregnancy
CPT/HCPCS: 90004; 90047; 90197; 90469; 93070; 95059